=== PATIENT | female | born 1980 | race Caucasian/White ===

== ENCOUNTER 2017-02-16 20:21 | Emergency (ER) | payer BC, OTHER ==
[~2017-02-16] VITALS: Ht 167.6 cm; Wt 103.9 kg
[~2017-02-16 20:21] MED LIST: ACET-2222 PO; ACHD5005 PO; CALC500T7 PO; DCS100C PO; FRS325T PO; IBP600T1 PO; OMEP20TA2 PO; OX05NA15; OXYC-12 PO; PREN1TAB39 PO
--- OUTSIDE RECORDS SUMMARY | 2017-02-16 20:26 | XMS REPORT ---
Author SALINAS Ibarra Organization [employer] Address Unknown Phone Unavailable Care Team Providers Care Medical Device Assembler Name Role Phone SALINAS BANKS CP Unavailable Allergies No Known Allergies Problems Problem Type Condition Code Onset Dates Condition Status Problem Allergic rhinitis, cause unspecified 477.9 Active Problem Undiagnosed cardiac murmurs 785.2 Active Problem Physical exam Z00.00 Active Problem Acute sinusitis, unspecified 461.9 Active Assessment Encounter for PPD test Z11.1 Active Medications No Known Medications Procedures Procedure Coding System Code Date TB INTRADERMAL TEST CPT-4 65197 Feb 03, 2015 Results No Known Results Summary Purpose [employer] Submission
--- OUTSIDE RECORDS SUMMARY | 2017-02-16 20:26 | XMS REPORT ---
Author MADHAVI Casarez [facility] [employer] Address Unknown Phone Unavailable Care Team Providers Care Head Waiter Name Role Phone MADHAVI ORO CP Unavailable Allergies, Adverse Reactions, Alerts Substance Reaction Event Type N.K.D.A. Info Not Available Non Drug Allergy Problems Problem Type Condition Code Onset Dates Condition Status Problem Allergic rhinitis, cause unspecified 477.9 Active Problem Undiagnosed cardiac murmurs 785.2 Active Problem Physical exam Z00.00 Active Problem Acute sinusitis, unspecified 461.9 Active Assessment Physical exam Z00.00 Active Medications Medication Code System Code Instructions Start Date End Date Status Dosage Sprintec [facility] [address]-85 0.25-35 MG-MCG Orally Once a day 1 tablet Procedures Procedure Coding System Code Date Preventive Care Est Pt. Age 18-39 CPT-4 95314 Jan 27, 2015 TB INTRADERMAL TEST CPT-4 51094 Jan 27, 2015 Vital Signs Date/Time: Jan 27, 2015 Temperature 98.1 F Weight 219.5 lbs Height 66 in BMI 35.42 Index Blood Pressure Diastolic 60 mmHg Blood Pressure Systolic 112 mmHg Cardiac Monitoring Heart Rate 74 bpm Results Name Result Date Reference Range Unit Abnormality Flag TB INTRADERMAL Summary Purpose [employer]ClinicalWorks Submission
--- OUTSIDE RECORDS SUMMARY | 2017-02-16 20:26 | XMS REPORT ---
Author Author OPAL AGUIAR Organization [employer] Address Unknown Phone Unavailable Care Team Providers Care Library Media Specialist Name Role Phone OPAL AGUIAR Unavailable Allergies No Known Allergies Problems Problem Type Condition ICD-9 Code Onset Dates Condition Status Problem Undiagnosed cardiac murmurs 785.2 Active Problem Acute sinusitis, unspecified 461.9 Active Problem Allergic rhinitis, cause unspecified 477.9 Active Medications Medication Code System Code Instructions Start Date End Date Status Dosage NuvaRing [facility] [address]-62 0.12-0.015 mg/24 hr June 11, 2014 insert 1 vaginal ring by vaginal route once a month leave in place for 3 weeks, remove for 1 week Augmentin [facility] [address]-43 875-125 mg June 05, 2014 1 tablet by Oral route 2 times per day for 10 day(s) Flonase [facility] [address]-51 50 mcg/actuation July 30, 2013 1-2 sprays by Nasal route 2 times per day in each nostril Vital Signs Date/Time: Dec 04, 2014 Blood Pressure Diastolic 66 mmHg Blood Pressure Systolic 118 mmHg Height 66 in Results No Known Results Summary Purpose eClinicalWorks Submission
--- OUTSIDE RECORDS SUMMARY | 2017-02-16 20:27 | XMS REPORT | Continuity of Care Document ---
Author Author [facility] Organization [facility] Address Unknown Phone Unavailable Allergies Active Description Code Type Severity Reaction Onset Reported/Identified Relationship to Patient Clinical Status Yes No Known Drug Allergies [id number] Drug Allergy Unknown N/ A 05/01/2010 Medications Problems Date Dx Coded Attending Type Code Diagnosis Diagnosed By 05/06/2010 Ot 645.11 05/06/2010 Ot 661.21 05/06/2010 Ot 663.31 05/06/2010 Ot V06.1 05/06/2010 Ot V27.0 07/30/2013 JAIRO WELLS APRN 477.9 RHINITIS 07/30/2013 ELLIOT SANTOS DO 477.9 RHINITIS 07/30/2013 ELLIOT SANTOS DO 477.9 RHINITIS 03/09/2014 Ot 789.00 03/09/2014 Ot 789.00 03/26/2014 BENITA HALL DO Ot 285.1 AC POSTHEMORRHAG ANEMIA 03/26/2014 BENITA HALL DO Ot 287.5 THROMBOCYTOPENIA NOS 03/26/2014 BENITA HALL DO Ot 478.19 OTHER DISEASE OF NASAL CAVITY AND SINUSE 03/26/2014 BENITA HALL DO Ot 648.22 ANEMIA-DELIVERED W P/P 03/26/2014 BENITA HALL DO Ot 648.92 OTH CURR COND-DEL W P/P 03/26/2014 BENITA HALL DO Ot 649.31 COAGULATION DEFECTS COMP PREG/CHILDBIRTH 03/26/2014 BENITA HALL DO Ot 654.21 PREV DELIVRY W/ OR W/O MENT ANT 03/26/2014 BENITA HALL DO Ot 656.61 EXCESS GRTH-DELIV 03/26/2014 BENITA HALL DO Ot V03.82 PROPHYLACTIC VACC AGAINST STREPTOCOCCUS 03/26/2014 BENITA HALL DO Ot V06.1 [id number], COMBINED [ 03/26/2014 BENITA HALL DO Ot V27.0 DELIVER-SINGLE LIVEBORN 03/27/2014 BENITA HALL DO Ot 654.23 03/27/2014 BENITA HALL DO Ot V72.84 06/05/2014 ELLIOT SANTOS DO 461.9 ACUTE SINUSITIS UNSPECIFIED 06/05/2014 ELLIOT SANTOS DO K 785.2 UNDIAGNOSED CARDIAC MURMURS 06/05/2014 TOM RICKS ELLIOT K 461.9 ACUTE SINUSITIS UNSPECIFIED 06/05/2014 ELLIOT ASNTOS DO K 785.2 UNDIAGNOSED CARDIAC MURMURS 03/30/2015 BENITA HALL DO Ot 654.23 03/30/2015 BENITA HALL DO Ot V72.84 12/27/2015 BENITA HALL DO Ot 654.23 PREV DELIVERY, ANTEPARTUM COND 12/27/2015 BENITA HALL DO Ot V72.84 EXAM PRE-OPERATIVE NOS Procedures Code Description Performed By Performed On 72.79 03/24/2014 74.1 03/24/2014 75846 THERAPUTIC INJ SQ/IM 06/11/2014 J2930 SOLUMEDROL INJ Results Encounters ACCT No. Visit Date/Time Discharge Status Pt. Type Provider Facility Loc./Unit Complaint [id number] 03/24/2014 07:37:00 2014 14:30:00 DIS Inpatient BENITA HALL DO [facility] LDRP PREVIOUS SECTION [id number] 03/16/2014 08:57:00 2013 23:59:59 CLS Outpatient BENITA HALL DO [facility] PREOP PREVIOUS SECTION [id number] 02/16/2017 20:22:00 ACT Emergency HANNAH VILLARREAL MD [facility] ER R EYELID CELLULITIS [id number] 03/09/2014 13:51:00 Document Registration [id number] 01/21/2011 11:14:00 Document Registration [id number] 01/20/2011 13:01:00 Document Registration [id number] 05/01/2010 19:58:00 Document Registration [id number] 06/11/2014 09:14:00 06/11/2014 23: 59:59 CLS Outpatient ELLIOT SANTOS DO [id number] 06/05/2014 15:08:00 06/05/2014 23: 59:59 CLS Outpatient ELLIOT SANTOS DO [id number] 07/30/2013 15:59:00 07/30/2013 23: 59:59 CLS Outpatient JAIRO WELLS APRN
[2017-02-16] MEDS ORDERED: AMOX1TAB12 PO (20:30)
--- NOTE | 2017-02-16 20:42 | ED EENT ---
History of Present Illness General Chief Complaint: Eye Problems Stated Complaint: R EYELID CELLULITIS Nursing Triage Note: C/o redness and bumps starting around R eye starting sunday Source: patient Exam Limitations: no limitations History of Present Illness Time seen by provider: 20:37 Initial Comments To ER with swelling and redness of the right eyelid. His began on Sunday of this week, 02/12. This began as 2 small bumps on the right upper eyelid. She did not know any cause but the pain anne her attention to them. She states they did not look like pimples. She is uncertain what may have caused this though she does state that she plucks her eyebrows. Yesterday she was started on cephalexin. Today, she reported worsening so she went to urgent care and received an intramuscular injection of Rocephin a few hours ago. She still denies improvement. She is otherwise healthy. Timing/Duration: abrupt Allergies and Home Medications Allergies Coded Allergies: No Known Drug Allergies (Unverified , 05/01/10) Home Medications Amoxicillin/Potassium Clav 1 Each Tablet, 1 EACH PO, (Reported) Sulfamethoxazole/Trimethoprim 1 Each Tablet, 1 EACH PO BID, #14 Prescribed by: RAMU ARRIAZA on 02/16/172119 Review of Systems Constitutional: see HPI, No chills, No fever Eyes: See HPI Ears: No Symptoms Reported Nose: no symptoms reported Mouth: no symptoms reported Throat: no symptoms reported Respiratory: no symptoms reported Cardiovascular: no symptoms reported Musculoskeletal: no symptoms reported Skin: no symptoms reported Neurological: No Symptoms Reported Hematologic/Lymphatic: No Symptoms Reported Past Suawepl-Hqwfoi-Vavjqg Hx Patient Social History Alcohol Use: Denies Use Recreational Drug Use: No Smoking Status: Never a Smoker Recent Foreign Travel: No Contact w/Someone Who Travel: No Recent Infectious Disease Expo: No Recent Hopitalizations: Yes Physical Abuse: No Sexual Abuse: No Immunizations Up To Date Date of Influenza Vaccine: Feb 16, 2014 Surgeries History of Surgeries: Yes (ANKLE) Respiratory History of Respiratory Disorde: No Cardiovascular History of Cardiac Disorders: Yes (HEART MURMUR-MVP) Neurological History of Neurological Disord: No Reproductive System Hx Reproductive Disorders: No Genitourinary History of Genitourinary Disor: No Gastrointestinal History of Gastrointestinal Di: No Musculoskeletal History of Musculoskeletal Dis: No Endocrine History of Endocrine Disorders: No HEENT History of HEENT Disorders: No Cancer History of Cancer: No Psychosocial History of Psychiatric Problem: No Suicide Risk Score: 0 Integumentary History of Skin or Integumenta: No Blood Transfusions History of Blood Disorders: No Family Medical History Family Medial History: No Family History of: AIDS Alcoholism Alzheimer's disease Arthritis Asthma Cancer of mouth Cardiovascular disease Cataracts Completed stroke Dementia Diabetes mellitus Drug abuse Glaucoma Hypertension Kidney disease Myocardial infarction Parkinson's disease Prostate cancer Respiratory disorder Seizure disorder Thyroid disease Tuberculosis Physical Exam Vital Signs Vital Sign - Last 12Hours 02/16/17 20:24 Temp 99.6 Pulse 82 Resp 18 Pulse Ox 97 O2 Delivery Room Air General Appearance: WD/WN, no apparent distress Eyes: right eye other (erythema and swelling of the right upper eyelid. Swelling of the lower eyelid but without erythema. There are 2 puncture done the inferior border of the eyebrow on the right. There is no pustule and there are no vesicles. Extraocular muscles are intact there is no conjunctival injection or erythema.), left eye normal inspection, bilateral eye PERRL, bilateral eye EOMI Neck: non-tender, full range of motion Respiratory: no respiratory distress, no accessory muscle use Gastrointestinal: non tender, soft Neurologic/Psychiatric: alert, normal mood/affect, oriented x 3 Skin: normal color, warm/dry Progress/Results/Core Measures Results/Orders Lab Results Laboratory Tests Test 02/16/17 20:40 Range/Units White Blood Count 13.4 H 4.3-11.0 10^3/uL Red Blood Count 4.56 4.35-5.85 10^6/uL Hemoglobin 14.5 11.5-16.0 G/DL Hematocrit 41 35-52 % Mean Corpuscular Volume 90 80-99 FL Mean Corpuscular Hemoglobin 32 25-34 PG Mean Corpuscular Hemoglobin Concent 36 32-36 G/DL Red Cell Distribution Width 12.9 10.0-14.5 % Platelet Count 209 130-400 10^3/uL Mean Platelet Volume 11.4 H 7.4-10.4 FL Neutrophils (%) (Auto) 79 H 42-75 % Lymphocytes (%) (Auto) 15 12-44 % Monocytes (%) (Auto) 4 0-12 % Eosinophils (%) (Auto) 1 0-10 % Basophils (%) (Auto) 0 0-10 % Neutrophils # (Auto) 10.6 H 1.8-7.8 X 10^3 Lymphocytes # (Auto) 2.0 1.0-4.0 X 10^3 Monocytes # (Auto) 0.5 0.0-1.0 X 10^3 Eosinophils # (Auto) 0.2 0.0-0.3 10^3/uL Basophils # (Auto) 0.0 0.0-0.1 10^3/uL Sodium Level 138 135-145 MMOL/L Potassium Level 3.6 3.6-5.0 MMOL/L Chloride Level 104 98-107 MMOL/L Carbon Dioxide Level 21 21-32 MMOL/L Anion Gap 13 5-14 MMOL/L Blood Urea Nitrogen 17 7-18 MG/DL Creatinine 0.87 0.60-1.30 MG/DL Estimat Glomerular Filtration Rate > 60 BUN/Creatinine Ratio 20 Glucose Level 148 H 70-105 MG/DL Calcium Level 9.2 8.5-10.1 MG/DL C-Reactive Protein High Sensitivity 2.97 H 0.00-0.50 MG/DL My Orders Orders - RAMU ARRIAZA APRN Cbc With Automated Diff (02/16/17 20:36) Hs C Reactive Protein (02/16/17 20:36) Basic Metabolic Panel (02/16/17 20:36) Ct Head Wo (02/16/17 20:36) Saline Lock/Iv-Start (02/16/17 20:36) Clindamycin Injection (Cleocin Injection (02/16/17 21:00) Clindamycin Injection (Cleocin Injection (02/16/17 21:12) Ns (Ivpb) (Sodium Chloride 0.9% Ivpb Bag (02/16/17 21:12) Medications Given in ED Current Medications Medications Dose Ordered Sig/Prerna Route Start Time Stop Time Status Last Admin Dose Admin Clindamycin Phosphate 900 mg ONCE ONCE IV 02/16/17 21:00 02/16/17 21:01 DC 02/16/17 21:25 900 MG Sodium Chloride 50 ml @ STK-MED ONCE .ROUTE 02/16/17 21:12 02/16/17 21:14 DC 02/16/17 21:24 100 MLS/HR Vital Signs/I&O Vital Sign - Last 12Hours 02/16/17 20:24 Temp 99.6 Pulse 82 Resp 18 B/P (MAP) Pulse Ox 97 O2 Delivery Room Air Departure Communication (Admissions) Progress Notes There are no open or draining wounds to culture. These punctum are dry. There is no fluctuance. Given that she is young and otherwise healthy and there are only 2 punctum without vesicles herpes zoster ophthalmicus does cross my mind but I feel this is unlikely. Impression Impression: Primary Impression: Periorbital cellulitis of right eye Disposition: HOME, SELF-CARE Condition: Stable Departure-Patient Inst. Decision time for Depature: 21:19 Referrals: NO,LOCAL PHYSICIAN (PCP/Family) Primary Care Physician Patient Instructions: Orbital Cellulitis Add. Discharge Instructions: 1. Cool compresses to the eye 2. Return to ER for any concerns 3. Continue with the antibiotics (amoxicillin). I will add an additional antibiotic called Bactrim which covers for the bacteria MRSA in the event that the cellulitis is caused from this type of bacteria. All discharge instructions reviewed with patient and/or family. Voiced understanding. Scripts Sulfamethoxazole/Trimethoprim (Bactrim Ds Tablet) 1 Each Tablet 1 EACH PO BID, #14 TAB Prov: RAMU ARRIAZA APRN 02/16/17 RAMU ARRIAZA APRN Feb 16, 2017 20:41
[2017-02-16 20:51] LABS: BASOPHILS % (AUTO) 0 % (0-10); EOSINOPHILS # (AUTO) 0.2 10^3/uL (0.0-0.3); EOSINOPHILS % (AUTO) 1 % (0-10); LYMPHOCYTES % (AUTO) 15 % (12-44); MEAN CORPUSCULAR HEMOGLOBIN 32 PG (25-34); MEAN CORPUSCULAR HGB CONC 36 G/DL (32-36); MEAN CORPUSCULAR VOLUME 90 FL (80-99); MEAN PLATELET VOLUME 11.4 FL (7.4-10.4); MONOCYTES # (AUTO) 0.5 X 10^3 (0.0-1.0); MONOCYTES % (AUTO) 4 % (0-12); NEUTROPHILS # (AUTO) 10.6 X 10^3 (1.8-7.8); NEUTROPHILS % (AUTO) 79 % (42-75); PLATELET COUNT 209 10^3/uL (130-400); RED BLOOD COUNT 4.56 10^6/uL (4.35-5.85); RED CELL DISTRIBUTION WIDTH 12.9 % (10.0-14.5); WHITE BLOOD COUNT 13.4 10^3/uL (4.3-11.0)
--- NOTE | 2017-02-16 21:02 | Diagnostic Imaging Report ---
PROCEDURE: CT head without contrast. TECHNIQUE: Multiple contiguous axial images were obtained through the brain without the use of intravenous contrast. INDICATION: Right eye swelling. FINDINGS: The ventricles and sulci are within normal limits. There is no hydrocephalus. There is no midline shift. There is no intracranial mass, hemorrhage or extra-axial fluid collection. The calvarium is intact. Sinuses and mastoid air cells are clear. There is soft tissue swelling about the right orbit. IMPRESSION: 1. No acute intracranial abnormality. 2. Soft tissues swelling about the right orbit. Dictated by: Dictated on workstation # [id number]
[2017-02-16 21:11] LABS: ANION GAP 13 MMOL/L (5-14); BLOOD UREA NITROGEN 17 MG/DL (7-18); BUN/CREATININE RATIO 20; CALCIUM 9.2 MG/DL (8.5-10.1); CARBON DIOXIDE 21 MMOL/L (21-32); CHLORIDE 104 MMOL/L (98-107); CREATININE SERUM 0.87 MG/DL (0.60-1.30); GFR ESTIMATED > 60; GLUCOSE 148 MG/DL (70-105); POTASSIUM 3.6 MMOL/L (3.6-5.0); SODIUM 138 MMOL/L (135-145); hs C REACTIVE PROTEIN 2.97 MG/DL (0.00-0.50)
[2017-02-16] MEDS ORDERED: NS (IVPB) 50 ML ONE (21:12)
[2017-02-16] MEDS ORDERED: CLINDAMYCIN 900 MG/6ML (CLEOCIN) VIAL ONE (21:12)
[2017-02-16] MEDS ORDERED: SULF1TAB35 PO (21:20)
[2017-02-16] MEDS: CLINDAMYCIN 900 MG/6ML (CLEOCIN) VIAL IV ONE ×2 (21:22→21:25)
[2017-02-16 21:47] VITALS: BP 155/96
== END 2017-02-16 21:46 | disposition home or self-care (01) ==
LOC: EDUNIT# 20:21 → ER 20:22
DX: L03.213 Periorbital cellulitis (principal)
CPT/HCPCS: 36415; 70450; 80048; 85025; 86141

== ENCOUNTER → 2017-02-17 | Emergency (ER) | payer OTHER ==
[~2017-02-17] VITALS: Ht 165.1 cm; Wt 90.7 kg
[~2017-02-17] MED LIST changes: +AMOX1TAB12 PO; +SULF1TAB35 PO
--- NOTE | 2017-02-17 13:14 | ED EENT ---
History of Present Illness General Stated Complaint: WOUND CHECK Source: patient Exam Limitations: no limitations History of Present Illness Time seen by provider: 13:12 Initial Comments Presents for wound check. There is less pain. On exam there is less erythema and swelling though these are both still present to some degree. The 2 small punctum noted yesterday now appear to be pustules. I have unroofed these with the blunt needle. I was able to collect a surprising amount of purulent material out of each one of these. Culture of this was collected and sent to lab. She is on Augmentin and Bactrim. Timing/Duration: abrupt Location: eye (R) Allergies and Home Medications Allergies Coded Allergies: No Known Drug Allergies (Unverified , 05/01/10) Home Medications Amoxicillin/Potassium Clav 1 Each Tablet, 1 EACH PO, (Reported) Sulfamethoxazole/Trimethoprim 1 Each Tablet, 1 EACH PO BID, #14 Prescribed by: RAMU ARRIAZA on 02/16/172119 Review of Systems Constitutional: see HPI, No chills, No fever Eyes: No Symptoms Reported Ears: No Symptoms Reported Nose: no symptoms reported Mouth: no symptoms reported Throat: no symptoms reported Respiratory: no symptoms reported Cardiovascular: no symptoms reported Past Avozvtb-Edflua-Hpsffo Hx Patient Social History Recent Foreign Travel: No Contact w/Someone Who Travel: No Recent Hopitalizations: Yes Immunizations Up To Date Date of Influenza Vaccine: Feb 16, 2014 Surgeries History of Surgeries: Yes (ANKLE) Respiratory History of Respiratory Disorde: No Cardiovascular History of Cardiac Disorders: Yes (HEART MURMUR-MVP) Neurological History of Neurological Disord: No Reproductive System Hx Reproductive Disorders: No Genitourinary History of Genitourinary Disor: No Gastrointestinal History of Gastrointestinal Di: No Musculoskeletal History of Musculoskeletal Dis: No Endocrine History of Endocrine Disorders: No HEENT History of HEENT Disorders: No Cancer History of Cancer: No Psychosocial History of Psychiatric Problem: No Integumentary History of Skin or Integumenta: No Blood Transfusions History of Blood Disorders: No Family Medical History Family Medial History: No Family History of: AIDS Alcoholism Alzheimer's disease Arthritis Asthma Cancer of mouth Cardiovascular disease Cataracts Completed stroke Dementia Diabetes mellitus Drug abuse Glaucoma Hypertension Kidney disease Myocardial infarction Parkinson's disease Prostate cancer Respiratory disorder Seizure disorder Thyroid disease Tuberculosis Physical Exam General Appearance: WD/WN, no apparent distress Eyes: right eye other (see history of present illness), bilateral eye PERRL, bilateral eye EOMI Ears: bilateral ear auricle normal, bilateral ear canal normal, bilateral ear TM normal Neck: non-tender, full range of motion Respiratory: no respiratory distress, no accessory muscle use Neurologic/Psychiatric: alert, normal mood/affect, oriented x 3 Skin: normal color, warm/dry Progress/Results/Core Measures Results/Orders My Orders Orders - RAMU ARRIAZA APRN Wound Culture (02/17/17 13:11) Departure Impression Impression: Primary Impression: Periorbital cellulitis of right eye Disposition: 01 HOME, SELF-CARE Condition: Stable Departure-Patient Inst. Decision time for Depature: 13:14 Referrals: NO,LOCAL PHYSICIAN (PCP/Family) Primary Care Physician Patient Instructions: PERIORBITAL CELLULITIS Add. Discharge Instructions: 1. Continue the current antibiotic regimen 2. Return to ER for any concerns 3. Tylenol and Motrin for pain RAUM ARRIAZA APRN Feb 17, 2017 13:14
== END ==
LOC: EDUNIT# 13:02 → ER 13:04
DX: H05.011 Cellulitis of right orbit (principal)
CPT/HCPCS: 87070; 87077; 87186; 87205

== ENCOUNTER 2018-09-17 10:05 | Day surgery (SDC) | payer OTHER ==
[2018-09-17] VITALS (8 sets, daily range): BP systolic 109–123; BP diastolic 63–78
[~2018-09-17] VITALS: Ht 165.1 cm; Wt 91.0 kg
[2018-09-17] MEDS: LACTATED RINGERS 1,000 ML IV SCH ×2 (10:30→13:21)
[2018-09-17] MEDS ORDERED: MIDAZOLAM 2 MG/2 ML (VERSED) VIAL IV ONE (10:30)
[2018-09-17] MEDS ORDERED: ceFAZolin INJECTION 1,000 MG in WATER (STERILE) FOR INJECTION 10 ML IV ONE (10:30)
--- NOTE | 2018-09-17 10:53 | Progress Note-Pre Operative ---
Pre-Operative Progress Note H&P Reviewed The H&P was reviewed, patient examined and no changes noted. Date Seen by Provider: Sep 17, 2018 Time Seen by Provider: 10:50 Date H&P Reviewed: Sep 17, 2018 Time H&P Reviewed: 10:50 Pre-Operative Diagnosis: missed , 8 weeks BENITA HALL DO Sep 17, 2018 10:52
--- OUTSIDE RECORDS SUMMARY | 2018-09-17 11:24 | XMS REPORT ---
Author Author Migration, Doctor Organization [facility] Address Unknown Phone Unavailable Care Team Providers Care Javascript Programmer Name Role Phone Migration, Doctor Unavailable Unavailable PROBLEMS Type Condition ICD9-CM Code KIN18-FZ Code Onset Dates Condition Status SNOMED Code Problem Allergic rhinitis, cause unspecified 477.9 Active 82094979 Problem Physical exam Z00.00 Active 609053659 Problem Undiagnosed cardiac murmurs 785.2 Active 582757304 Problem Acute sinusitis, unspecified 461.9 Active 83631466 ALLERGIES No Information ENCOUNTERS Encounter Location Date Diagnosis [address] [id number] Apr, Sore throat and laryngitis J06.[address] [id number] Jan, Encounter for PPD test Z11.1 [facility] [id number] [place] [id number] Jan, Physical exam Z00.[address] [id number] [place] [id number] Nov, [facility] [id number] [place] [phone] Jun, [facility] [id number] [place] [phone] Jun, [address] [id number] [place] [id number] May, [facility] [address] [phone] May, [address] [place] [id number] [place] [address] [id number] May, [facility] [address] [phone] May, [facility] [address] [facility] [id number] [id number] July, [facility] [address] [facility] [id number] [place] [address] July, IMMUNIZATIONS No Known Immunizations SOCIAL HISTORY Never Assessed REASON FOR VISIT EMR[place] [place]AN OF CARE VITAL SIGNS MEDICATIONS Medication Instructions Dosage Frequency Start Date End Date Duration Status Augmentin 875-125 mg 1 tablet by Oral route 2 times per day for 10 day(s) May, Active NuvaRing 0.12-0.015 mg/24 hr insert 1 vaginal ring by vaginal route once a month leave in place for 3 weeks, remove for 1 week May, Active Flonase 50 mcg/actuation 1-2 sprays by Nasal route 2 times per day in each nostril July, Active RESULTS No Results PROCEDURES No Known procedures INSTRUCTIONS MEDICATIONS ADMINISTERED No Known Medications MEDICAL (GENERAL) HISTORY Type Description Date Surgical History section x2 Hospitalization History childbirth
--- OUTSIDE RECORDS SUMMARY | 2018-09-17 11:24 | XMS REPORT | Continuity of Care Document ---
Author Organization Unknown Address Unknown Allergies Active Description Code Type Severity Reaction Onset Reported/Identified Relationship to Patient Clinical Status Yes No Known Drug Allergies [id number] Drug Allergy Unknown N/A 05/01/2010 Medications There is no data. Problems Date Dx Coded Attending Type Code [...] STREPTOCOCCUS 03/26/2014 BENITA HALL DO Ot V06.1 CBCXOZQIVA-[id number]-LYPRYMNWM, COMBINED [ 03/26/2014 BENITA HALL DO, Ot V27.0 DELIVER-SINGLE LIVEBORN 03/27/2014 RAFAEL RICKS, BENITA C Ot 654.23 03/27/2014 RAFAEL RICKS, BENITA C Ot V72.84 06/05/2014 ELLIOT SANTOS DO K 461.9 ACUTE SINUSITIS UNSPECIFIED 06/05/2014 ELLIOT SANTOS DO K 785.2 UNDIAGNOSED CARDIAC MURMURS 06/05/2014 ELLIOT SANTOS DO K 461.9 ACUTE SINUSITIS UNSPECIFIED 06/05/2014 ELLIOT SANTOS DO K 785.2 UNDIAGNOSED CARDIAC MURMURS 03/30/2015 RAFAEL DO, BENITA C Ot 654.23 03/30/2015 HALL DO, BENITA C Ot V72.84 12/27/2015 HALL DO, BENITA C Ot 654.23 PREV DELIVERY, ANTEPARTUM COND 12/27/2015 RAFAEL RICKS, BENITA C Ot V72.84 EXAM PRE-OPERATIVE NOS 02/16/2017 RAMU ARRIAZA APRN Ot H57.8 OTHER SPECIFIED DISORDERS OF EYE AND ADN 02/16/2017 RMAU ARRIAZA APRN Ot L03.213 PERIORBITAL CELLULITIS 02/16/2017 RAFAEL DO, BENITA C Ot 654.23 PREV DELIVERY, ANTEPARTUM COND 02/16/2017 HALL , BENITA C Ot V72.84 EXAM PRE-OPERATIVE NOS 02/17/2017 RAMU ARRIAZA APRN Ot H05.011 CELLULITIS OF RIGHT ORBIT 02/20/2017 RAMU ARRIAZA APRN Ot H05.011 CELLULITIS OF RIGHT ORBIT 03/21/2017 RAMU ARRIAZA APRN Ot H05.011 CELLULITIS OF RIGHT ORBIT 03/25/2017 RAMU ARRIAZA APRN Ot H05.011 CELLULITIS OF RIGHT ORBIT Procedures Code Description Performed By Performed On 72.79 VACUUM EXTRACT DEL NEC 03/24/2014 74.1 LOW CERVICAL 03/24/2014 65711 THERAPUTIC INJ SQ/IM 06/11/2014 J2930 SOLUMEDROL INJ 06/11/2014 Results Test Result Range Complete blood count (CBC) with automated white blood cell (WBC) differential - 02/16/17 20:40 Blood leukocytes automated count (number/volume) 13.4 10*3/uL 4.3-11.0 Blood erythrocytes automated count (number/volume) 4.56 10*6/uL 4.35-5.85 Venous blood hemoglobin measurement (mass/volume) 14.5 g/dL 11.5-16.0 Blood hematocrit (volume fraction) 41 % 35-52 Automated erythrocyte mean corpuscular volume 90 [foz_us] 80-99 Automated erythrocyte mean corpuscular hemoglobin (mass per erythrocyte) 32 pg 25-34 Automated erythrocyte mean corpuscular hemoglobin concentration measurement (mass/volume) 36 g/dL 32-36 Automated erythrocyte distribution width ratio 12.9 % 10.0- 14.5 Automated blood platelet count (count/volume) 209 10*3/uL 130-400 Automated blood platelet mean volume measurement 11.4 [foz_us] 7.4-10.4 Automated blood neutrophils/100 leukocytes 79 % 42-75 Automated blood lymphocytes/100 leukocytes 15 % 12-44 Blood monocytes/100 leukocytes 4 % 0-12 Automated blood eosinophils/100 leukocytes 1 % 0-10 Automated blood basophils/100 leukocytes 0 % 0-10 Blood neutrophils automated count (number/volume) 10.6 10*3 1.8-7.8 Blood lymphocytes automated count (number/volume) 2.0 10*3 1.0-4.0 Blood monocytes automated count (number/volume) 0.5 10*3 0.0- 1.0 Automated eosinophil count 0.2 10*3/uL 0.0-0.3 Automated blood basophil count (count/volume) 0.0 10*3/uL 0.0-0.1 Whole blood basic metabolic panel - 02/16/17 20:40 Serum or plasma sodium measurement (moles/volume) 138 mmol/L 135-145 Serum or plasma potassium measurement (moles/volume) 3.6 mmol/L 3.6-5.0 Serum or plasma chloride measurement (moles/volume) 104 mmol/L 98-107 Carbon dioxide 21 mmol/L 21-32 Serum or plasma anion gap determination (moles/volume) 13 mmol/L 5-14 Serum or plasma urea nitrogen measurement (mass/volume) 17 mg/dL 7-18 Serum or plasma creatinine measurement (mass/volume) 0.87 mg/dL 0.60-1.30 Serum or plasma urea nitrogen/creatinine mass ratio 20 NRG Serum or plasma creatinine measurement with calculation of estimated glomerular filtration rate > NRG Serum or plasma glucose measurement (mass/volume) 148 mg/dL 70-105 Serum or plasma calcium measurement (mass/volume) 9.2 mg/dL 8.5-10.1 Serum or plasma C reactive protein measurement (mass/volume) - 02/16/17 20:40 Serum or plasma C reactive protein measurement (mass/volume) 2.97 mg/dL 0.00-0.50 Gram stain microscopy - 02/17/17 13:16 GRAM STAIN RESULT FEW GRAM POSITIVE COCCI RESEMBLING STAPH NRG Bacteria identification in wound by culture - 02/17/17 13:16 Bacteria identification in wound by culture [id number] NRG FREE TEXT EXTERNAL SENSITIVITY REPORTED AT 02-19-17 NRG QUANTITY OF GROWTH Moderate Growth NRG Bacterial susceptibility panel - 02/17/17 13:16 Oxacillin susceptibility test by minimum inhibitory concentration 0.5 NRG Gentamicin susceptibility test by minimum inhibitory concentration <= NRG Clindamycin susceptibility test by minimum inhibitory concentration <= NRG Erythromycin susceptibility test by minimum inhibitory concentration >= NRG Trimethoprim/sulfamethoxazole susceptibility test by minimum inhibitoryconcentration S NRG Vancomycin susceptibility test by minimum inhibitory concentration S NRG Levofloxacin susceptibility test by minimum inhibitory concentration 4 NRG Rifampin susceptibility test by minimum inhibitory concentration <= NRG Tetracycline susceptibility test by minimum inhibitory concentration <= NRG Ciprofloxacin susceptibility test by minimum inhibitory concentration R NRG Encounters ACCT No. Visit Date/Time Discharge Status Pt. Type Provider Facility Loc./Unit Complaint [id number] 06/11/2014 09:14:00 06/11/2014 23:59:59 CLS Outpatient ELLIOT SANTOS DO [id number] 06/05/2014 15:08:00 06/05/2014 23:59:59 CLS Outpatient ELLIOT SANTOS DO [id number] 07/30/2013 15:59:00 07/30/2013 23:59:59 CLS Outpatient JAIRO WELLS APRN [id number] 02/17/2017 13:04:00 02/17/2017 13:24:00 DIS Emergency RAMU ARRIAZA APRN [facility] ER WOUND CHECK [id number] 02/16/2017 20:22:00 02/16/2017 21:46:00 DIS Emergency RAMU ARRIAZA APRN [facility] ER R EYELID CELLULITIS [id number] 03/24/2014 07:37:00 03/26/2014 14:30:00 DIS Inpatient BENITA HALL DO [facility] LDRP PREVIOUS SECTION [id number] 03/16/2014 08:57:00 03/16/2014 23:59:59 CLS Outpatient BENITA HALL DO [facility] PREOP PREVIOUS SECTION [id number] 03/09/2014 13:51:00 Document Registration [id number] 01/21/2011 11:14:00 Document Registration [id number] 01/20/2011 13:01:00 Document Registration [id number] 05/01/2010 19:58:00 Document Registration
--- OUTSIDE RECORDS SUMMARY | 2018-09-17 11:24 | XMS REPORT ---
Author Author Migration, Doctor Organization [facility] Address Unknown Phone Unavailable Care Team Providers Care Machine Lead Burner Name Role Phone Migration, Doctor Unavailable Unavailable PROBLEMS Type Condition ICD9-CM Code [id number] Code Onset Dates Condition Status SNOMED Code Problem Allergic rhinitis, cause unspecified 477.9 Active 57254342 Problem Physical exam Z00.00 Active 440163738 Problem Undiagnosed cardiac murmurs 785.2 Active 000423638 Problem Acute sinusitis, unspecified 461.9 Active 62896576 ALLERGIES No Information ENCOUNTERS Encounter Location Date Diagnosis [address] [id number] Apr, Sore throat and laryngitis J06.[address] [id number] Jan, Encounter for PPD test Z11.1 [facility] [id number] [place] [address] Jan, Physical exam Z00.00 [id number] [place] [id number] Nov, [facility] [id number] [place] [address] Jun, [facility] [id number] [place] [phone] Jun, [place] [place] [id number] [place] [id number] May, [facility] [address] [phone] May, [place] [id number] [place] [id number] May, [facility] [address] [address] May, [facility] [address] [facility] [id number] [place] [id number] July, [facility] [address] [facility] [id number] [address] July, IMMUNIZATIONS No Known Immunizations SOCIAL HISTORY Never Assessed REASON FOR [place] [place] VITAL SIGNS MEDICATIONS No Known Medications RESULTS No Results PROCEDURES No Known procedures INSTRUCTIONS MEDICATIONS ADMINISTERED No Known Medications MEDICAL (GENERAL) HISTORY Type Description Date Surgical History section x2 Hospitalization History childbirth
[2018-09-17] MEDS ORDERED: fentaNYL INJECTION 100 MCG/2 ML AMP ONE (12:30)
[2018-09-17] MEDS ORDERED: ONDANSETRON 4 MG/2 ML (SDV) Z0FRAN ONE (12:30)
[2018-09-17] MEDS ORDERED: LIDOCAINE PF 2% 5 ML (XYLOCAINE) VIAL ONE (12:30)
[2018-09-17] MEDS ORDERED: proPOfol 200 MG/20 ML (DIPRIVAN) VIAL IV ONE (12:30)
[2018-09-17] MEDS ORDERED: MIDAZOLAM 2 MG/2 ML (VERSED) VIAL ONE (12:31)
[2018-09-17] MEDS ORDERED: DEXAMETHASONE 10 MG/ML (DECADRON) 1 ML VIAL ONE (12:32)
[2018-09-17] MEDS ORDERED: KETOROLAC 30 MG/ML VIAL ONE (12:32)
[2018-09-17] MEDS ORDERED: SEVOFLURANE (ULTANE) 15 ML INHAL SOLN ONE ×3 (12:32→13:14)
[2018-09-17] MEDS ORDERED: PREN-142 PO (12:37)
[2018-09-17] MEDS ORDERED: KETOROLAC 30 MG/ML VIAL IVP ONE (13:15)
--- NOTE | 2018-09-17 13:17 | Operative Report ---
Operative Report Date of Procedure/Surgery Sep 17, 2018 Surgeon (s) BENITA HALL DO Adhesive Bandage Machine Operator (s): NA Post-Operative Diagnosis Missed at 8 weeks Procedure Performed suction dilation and curettage Description of Procedure Anesthesia Type: General Estimated blood loss (mL): 200 Specimen(s) collected/removed products of conception Findings of the Procedure minimal amounts of productus of conception Allergies and Home Medications Allergies Coded Allergies: No Known Drug Allergies (Unverified , 05/01/10) Home Medications Vit No.124/Iron/FA 1 Each Tablet, 1 EACH PO DAILY, (Reported) Patient Home Medication List Home Medication List Reviewed: Yes BENITA HALL DO Sep 17, 2018 13:17
[2018-09-17] MEDS ORDERED: OXC5T PO (13:19)
[2018-09-17] MEDS ORDERED: ACET-2267 PO (13:19)
[2018-09-17] MEDS ORDERED: IBUP-1773 PO (13:19)
--- NOTE | 2018-09-17 13:21 | Discharge Inst-Women's Service ---
Discharge Inst-Women's Serv Depart Medication/Instructions New, Converted or Re-Newed RX: RX on Chart Final Diagnosis missed /miscarriage 8 weeks gestation Consults/Follow Up Additional Follow Up: Yes (1-2 weeks) Activity Activity: Activity as Tolerated Driving Instructions: No Driving for 24 Hours NO SMOKING: NO SMOKING Nothing Inside Vagina: No Douching, No [place], No Tampons Diet Discharge Diet: No Restrictions Symptoms to Report to : Bleeding Excessive, Pain Increased, Fever Over 101 Degrees F, Vaginal Bleeding Increase, Cramps in Feet or Legs, Vaginal Discharge Foul For Any Problems or Questions: Contact Your Physician BENITA HALL DO Sep 17, 2018 13:21
[2018-09-17] MEDS ORDERED: ONDANSETRON 4 MG/2 ML (SDV) Z0FRAN IVP PRN (13:30)
[2018-09-17] MEDS ORDERED: HYDROmorphone 2 MG/ML VIAL (DILAUDID) IV ONE (13:30)
[2018-09-17] MEDS ORDERED: PROMETHAZINE INJ 25 MG/ML (PHENERGAN) AMP IVP ONE (13:30)
[2018-09-17] MEDS ORDERED: morphine INJ 10 MG/ML 1ML (SYR OR VIAL) IVP ONE (13:30)
[2018-09-17] MEDS ORDERED: MEPERIDINE (DEMEROL) INJ 50 MG/ML IVP ONE (13:30)
== END 2018-09-17 14:55 | disposition home or self-care (01) ==
LOC: SDC 10:05
PROVIDERS: ATTEND Obstetrics & Gynecology
DX: O02.1 Missed abortion (principal); I34.0 Nonrheumatic mitral (valve) insufficiency; E66.9 Obesity, unspecified; Z68.34 Body mass index [BMI] 34.0-34.9, adult
CPT/HCPCS: 87081; 88305; 94664

== ENCOUNTER → 2019-03-03 | Outpatient (CLI) | payer OTHER ==
[~2019-03-03] MED LIST changes: +ACET-2267 PO; +IBUP-1773 PO; +OXC5T PO; +PREN-142 PO
--- NOTE | 2019-03-03 15:12 | Diagnostic Imaging Report ---
INDICATION: Cough and shortness of breath. TIME OF EXAM: 2:44 p.m. COMPARISON: No prior studies are available for comparison. FINDINGS: The heart size is normal. The pulmonary vascularity is unremarkable. The lungs are clear. No infiltrate, effusion or pneumothorax is detected. IMPRESSION: No acute cardiopulmonary process is detected. Dictated by: Dictated on workstation # [id number]
== END ==
LOC: RAD 14:06
PROVIDERS: ATTEND Nurse Practitioner Family
DX: O99.511 Diseases of the respiratory system complicating pregnancy, first trimester (principal); J16.8 Pneumonia due to other specified infectious organisms; O99.89 Other specified diseases and conditions complicating pregnancy, childbirth and the puerperium; F43.20 Adjustment disorder, unspecified; Z3A.11 11 weeks gestation of pregnancy
CPT/HCPCS: 71047

== ENCOUNTER → 2019-05-19 | Outpatient (CLI) | payer BC, OTHER ==
--- NOTE | 2019-05-19 12:20 | Diagnostic Imaging Report ---
INDICATION: survey. TECHNIQUE: Multiple real-time grayscale images were obtained over the gravid uterus. COMPARISON: None. FINDINGS: There are no prior studies available for comparison. There is a single live fetus in cephalic presentation. heart motion was noted and a rate 144 bpm was recorded. There are no abnormalities identified. The growth parameters are fairly uniform. The placenta is posterior and there is no previa. The amniotic fluid volume is within normal limits. The cervix is identified and measures 4.4 cm in length. Biometrical measurements are as follows: Biparietal cm, age weeks days. Head circumference cm, age weeks days. Abdominal circumference cm, age weeks days. Femur length cm, age weeks days. Sonographic estimate age: weeks days. Sonographic estimated date of delivery: . Estimated Weight: gm (+/- gm). LMP percentile: %. heart rate: beats per minute. number: of . IMPRESSION: 1. There is a single live fetus of approximately 20 weeks 2 days gestation +/- 1.5 weeks. The EDC is October 04, 2019. 2. There are no abnormalities identified. 3. The growth parameters are fairly uniform. Dictated by: Dictated on workstation # [id number]
== END ==
LOC: RAD 10:08
PROVIDERS: ATTEND Obstetrics & Gynecology
DX: Z36.89 Encounter for other specified antenatal screening (principal); Z3A.20 20 weeks gestation of pregnancy
CPT/HCPCS: 76805

== ENCOUNTER → 2019-07-15 | Outpatient (CLI) | payer BC ==
--- NOTE | 2019-07-15 14:32 | Diagnostic Imaging Report ---
INDICATION: Gestational diabetes mellitus. TECHNIQUE: Multiple real-time grayscale images were obtained over the gravid uterus. The fetus was also observed by the cloth booker for purposes of a nonstress biophysical profile evaluation. COMPARISON: 05/19/2019. FINDINGS: A single viable intrauterine is currently in a cephalic presentation. Placenta is posterior and without evidence for previa. Amniotic fluid: 18.63 cm, upper limits of normal anatomical assessment was not performed. Biometrical measurements are as follows: Biparietal 7.49 cm, age 30 weeks 1 days. Head circumference 27.15 cm, age 29 weeks 5 days. Abdominal circumference 25.72 cm, age 30 weeks 0 days. Femur length 5.53 cm, age 29 weeks 2 days. Sonographic estimate age: 29 weeks 6 days. Sonographic estimated date of delivery: 09/24/2019. Estimated Weight: 1428 gm (+/- 208 gm). LMP percentile: 39%. heart rate: 129 beats per minute. number: 1 of 1. Biophysical Profile Scoring: breathin Body movement: 2 tone: 2 Amniotic fluid: 2 Total BPP Score: 8/8 IMPRESSION: 1. Single viable intrauterine with sonographic estimated age 29 weeks 6 days for estimated date of delivery of September 24, 2019. This is approximately 10 days advanced compared to previous ultrasound dating. Continued short-term follow-up imaging is recommended for reassessment. 2. Normal biophysical profile score. Dictated by: Dictated on workstation # [id number]
== END ==
LOC: RAD 13:11
PROVIDERS: ATTEND Obstetrics & Gynecology
DX: O24.410 Gestational diabetes mellitus in pregnancy, diet controlled (principal); Z3A.29 29 weeks gestation of pregnancy
CPT/HCPCS: 76805; 76819

== ENCOUNTER → 2019-08-15 | Outpatient (CLI) | payer BC, MEDICAID ==
--- NOTE | 2019-08-15 13:00 | Diagnostic Imaging Report ---
INDICATION: Gestational diabetes. TECHNIQUE: Multiple real-time grayscale images were obtained over the gravid uterus. COMPARISON: 07/15/2019. FINDINGS: There is a single live fetus in a cephalic presentation. heart rate was recorded at 134 BPM. Placenta is posterior. Amniotic fluid index is 16.1 cm. Biophysical profile was performed with a normal score of 8/8. Biometrical measurements are as follows: Biparietal 8.58 cm, age 34 weeks 5 days. Head circumference 30.76 cm, age 34 weeks 3 days. Abdominal circumference 30.17 cm, age 34 weeks 1 days. Femur length 6.29 cm, age 32 weeks 4 days. Sonographic estimate age: 34 weeks 0 days. Sonographic estimated date of delivery: 09/26/2019. Estimated Weight: 2267 gm (+/- 331 gm). LMP percentile: 36%. heart rate: 134 beats per minute. number: 1 of 1. IMPRESSION: Single live IUP of approximately 34 weeks gestational age, demonstrating normal interval growth. Biophysical profile is normal at 8/8. Dictated by: Dictated on workstation # [id number]
== END ==
LOC: RAD 11:32
PROVIDERS: ATTEND Obstetrics & Gynecology
DX: O24.410 Gestational diabetes mellitus in pregnancy, diet controlled (principal); O09.529 Supervision of elderly multigravida, unspecified trimester; Z3A.32 32 weeks gestation of pregnancy; Z98.891 History of uterine scar from previous surgery
CPT/HCPCS: 76805; 76819

== ENCOUNTER 2019-09-18 05:55 | Outpatient (RCR) | payer BC, MEDICAID ==
[~2019-09-18] VITALS: Ht 170 cm; Wt 104.0 kg
[~2019-09-18 05:55] MED LIST changes: +METF-397 PO; +OMEP10CA5 PO
== END 2019-09-18 15:11 | disposition home or self-care (01) ==
LOC: PREOP 05:55
PROVIDERS: ATTEND Obstetrics & Gynecology
DX: Z01.818 Encounter for other preprocedural examination (principal); Z20.828 Contact with and (suspected) exposure to other viral communicable diseases
CPT/HCPCS: 87635

== ENCOUNTER 2019-09-23 03:45 | Inpatient (IN) | payer MEDICAID ==
[~2019-09-23] VITALS: Ht 167.7 cm; Wt 104.5 kg
[~2019-09-23 03:45] MED LIST changes: -ACET-93 PO; -FERR-84 PO; -IBUP-844 PO; -OXYC5TAB96 PO
[2019-09-24] VITALS (7 sets, daily range): BP systolic 102–140; BP diastolic 64–99
[2019-09-24] MEDS ORDERED: LACTATED RINGERS 1,000 ML IV ONE (05:42)
[2019-09-24] MEDS ORDERED: METOCLOPRAMIDE INJ 10 MG/2 ML (REGLAN) ONE (05:42)
[2019-09-24] MEDS ORDERED: FAMOTIDINE 20MG/2ML IV (PEPCID) ONE (05:42)
[2019-09-24] MEDS ORDERED: CITRIC ACID/SOB CIT (BICITRA) 30 ML UDC ONE (05:42)
[2019-09-24] MEDS ORDERED: WATER (STERILE) FOR INJECTION 10 ML ONE (05:43)
[2019-09-24] MEDS ORDERED: ceFAZolin INJECTION 1,000 MG ONE (05:43)
--- OUTSIDE RECORDS SUMMARY | 2019-09-24 06:04 | XMS REPORT ---
Author Author Areli GIBBS [facility] Address [address] [place] [address] Care Team Providers Care Lean Facilitator Name Role Phone DIONICIO GIBBS Unavailable PROBLEMS Type Condition ICD9-CM Code [id number] Code Onset Dates Condition S tatus SNOMED Code Problem Allergic rhinitis, cause unspecified 477.9 Active 14385138 Problem Physical exam Z00.00 Active 700165 008 Problem Undiagnosed cardiac murmurs 785.2 Ac tive 681850704 Problem Acute sinusitis, unspecified 461.9 A ctive [id number] ALLERGIES No Information ENCOUNTERS Encounter Location Date Diagnosis [facility] [id number] [place] [id number] Apr, Sore throat and laryngitis J06.0 [facility] [id number] [place] [id number] Jan, Encounter for PPD test Z11.1 [facility] [id number] [place] [address] Jan, Physical exam Z00.00 [facility] [id number] [place] [id number] Nov, [facility] [id number] [place] [address] Jun, [facility] [address] [facility] [id number] [address] [place] [address] Jun, [facility] [id number] [place] [id number] May, [facility] [id number] [place] [phone] May, [facility] [address] [id number] [place] [id number] May, [facility] [address] [facility] [id number] [place] [address] May, [facility] [address] [id number] [facility] [id number] July, [facility] [address] [facility] [id number] [place] [address] July, IMMUNIZATIONS No Known Immunizations SOCIAL HISTORY Never Assessed REASON FOR VISIT PLAN OF CARE VITAL SIGNS Height 66 in 2014-06-05 Weight 219.4 lbs 2014-06-05 Temperature 99 degrees Fahrenheit 2014-06-05 Heart Rate 84 bpm 2014-06-05 Respiratory Rate 20 2014-06-05 Blood pressure systolic 128 mmHg 2014-06-05 Blood pressure diastolic 82 mmHg 2014-06-05 MEDICATIONS No Known Medications RESULTS No Results PROCEDURES No Known procedures INSTRUCTIONS MEDICATIONS ADMINISTERED No Known Medications MEDICAL (GENERAL) HISTORY Type Description Date Surgical History section x2 Hospitalization History childbirth
--- OUTSIDE RECORDS SUMMARY | 2019-09-24 06:04 | XMS REPORT ---
Author Author Areli Kelly [facility] Address [address] [place] [address] Care Team Providers Care Line Maintainer Section Name Role Phone OPAL Kelly Unavailable PROBLEMS Type Condition ICD9-CM Code GLA19-UH Code Onset Dates Condition S tatus SNOMED Code Problem Allergic rhinitis, cause unspecified 477.9 Active 24163311 Problem Physical exam Z00.00 Active 131520 008 Problem Undiagnosed cardiac murmurs 785.2 Ac tive 075442320 Problem Acute sinusitis, unspecified 461.9 A ctive [id number] ALLERGIES No Information ENCOUNTERS Encounter Location Date Diagnosis [facility] [id number] [place] [id number] Apr, Sore throat and laryngitis J06.0 [facility] [id number] [place] [address], [place] [id number] Jan, Encounter for PPD test Z11.1 [facility] [id number] [place] [address] Jan, Physical exam Z00.00 [facility] [id number] [place] [id number] Nov, [facility] [id number] [place] [phone] Jun, [facility] [id number] [place] [phone] Jun, [facility] [id number] [place] [address], [place] [id number] May, [facility] [id number] [place] [phone] May, [facility] [id number] [place] [address], [facility] [id number] May, [facility] [address] [facility] [id number] [place] [address] May, [facility] [address] [id number] [place] [facility] [id number] July, [facility] [address] [facility] [id number] [place] [address] July, IMMUNIZATIONS No Known Immunizations SOCIAL HISTORY Never Assessed REASON FOR VISIT PLAN OF CARE VITAL SIGNS Height 66 in 2014-06-11 Weight 215 lbs 2014-06-11 Temperature 98.6 degrees Fahrenheit 2014-06-11 Heart Rate 72 bpm 2014-06-11 Respiratory Rate 16 2014-06-11 Blood pressure systolic 118 mmHg 2014-06-11 Blood pressure diastolic 68 mmHg 2014-06-11 MEDICATIONS No Known Medications RESULTS No Results PROCEDURES Procedure Date Ordered Result Body Site THER/PROPH/DIAG INJ, SC/IM June 11, 2014 INJ METHYLPRDNISLN SODIM TO 125 MG June 11, 2014 INSTRUCTIONS MEDICATIONS ADMINISTERED No Known Medications MEDICAL (GENERAL) HISTORY Type Description Date Surgical History section x2 Hospitalization History childbirth
--- NOTE | 2019-09-24 06:05 | NUR ---
EMERSON SIBLEY presented to unit via ambulation from home/ED, accompanied by SO, for repeat csection. EMERSON SIBLEY weighed, gowned, voided, and to bed. EFHM and TOCO applied, VS taken. EMERSON SIBLEY oriented to bed controls, call light, TV, heat, and A/C controls.
--- OUTSIDE RECORDS SUMMARY | 2019-09-24 06:05 | XMS REPORT | Continuity of Care Document ---
Author Organization Unknown Address Unknown Phone Unavailable Allergies Active Description Code Type Severity Reaction Onset Reported/Identified Relationship to Patient Clinical Status Yes No Known Drug Allergies [id number] Drug Allergy Unknown N/A 09/16/2019 Medications There is no data. Problems Date Dx Coded Attending Type Code Diagnosis Diagnosed By 02/15/1510 BENITA HALL DO Ot Z01.8 18 ENCOUNTER FOR OTHER PREPROCEDURAL EXAMIN 02/15/1510 BENITA HALL DO Ot Z20.8 28 CONTACT W AND EXPOSURE TO OTH VIRAL COMM 03/22/2007 Ot 530.81 03/22/2007 Ot 553.3 05/06/2010 Ot 645.11 POS T TERM PREG, DELIV W/WO MENTION OF AN 05/06/2010 Ot 661.21 RADHA RINE INERT NEC-DELIV 05/06/2010 Ot 663.31 COR D ENTANGLE NEC-DELIV 05/06/2010 Ot V06.1 [id number], COMBINED [ 05/06/2010 Ot V27.0 DELI JERARDO-SINGLE LIVEBORN 07/30/2013 JAIRO WELLS APRN 477.9 RHINITIS 07/30/2013 ELLIOT SANTOS DO 477.9 RHINITIS 07/30/2013 ELLIOT SANTOS DO 477.9 RHINITIS 03/09/2014 Ot 789.00 03/09/2014 Ot 789.00 03/26/2014 BENITA HALL DO Ot 285.1 AC POSTHEMORRHAG ANEMIA 03/26/2014 BENITA HALL DO Ot 287.5 THROMBOCYTOPENIA NOS 03/26/2014 BENITA HALL DO Ot 478.1 9 OTHER DISEASE OF NASAL CAVITY AND SINUSE 03/26/2014 BENITA HALL DO Ot 648.2 2 ANEMIA-DELIVERED W P/P 03/26/2014 BENITA HALL DO Ot 648.9 2 OTH CURR COND-DEL W P/P 03/26/2014 BENITA HALL DO Ot 649.3 1 COAGULATION DEFECTS COMP PREG/CHILDBIRTH 03/26/2014 RAFAEL RICKS BENITA C Ot 654.2 1 PREV DELIVRY W/ OR W/O MENT ANT 03/26/2014 HALLMayur RICKS BENITA Petra Ot 656.6 1 EXCESS GRTH-DELIV 03/26/2014 RAFAEL RICKS BENITA Petra Ot V03.8 2 PROPHYLACTIC VACC AGAINST STREPTOCOCCUS 03/26/2014 HALLMayur RICKS BENITA Petra Ot V06.1 [id number], COMBINED [ 03/26/2014 RAFAEL RICKS BENITA Petra Ot V27.0 DELIVER-SINGLE LIVEBORN 03/27/2014 HALLMayur RICKS BENITA C Ot 654.2 3 03/27/2014 HALL EBNITA C Ot V72.8 4 06/05/2014 ELLIOT SANTOS DO K 461.9 ACUTE SINUSITIS UNSPECIFIED 06/05/2014 MARY SANTOS DOA K 785.2 UNDIAGNOSED CARDIAC MURMURS 06/05/2014 ELLIOT SANTOS DO K 461.9 ACUTE SINUSITIS UNSPECIFIED 06/05/2014 MARY SANTOS DOA K 785.2 UNDIAGNOSED CARDIAC MURMURS 03/30/2015 HALL BENITA C Ot 654.2 3 03/30/2015 HALL BENITA C Ot V72.8 4 12/27/2015 RAFAEL RICKS BENITA C Ot 654.2 3 PREV DELIVERY, ANTEPARTUM COND 12/27/2015 HALLMayur RICKS BENITA C Ot V72.8 4 EXAM PRE-OPERATIVE NOS 02/16/2017 RAMU ARRIAZA APRN Ot H57 .8 OTHER SPECIFIED DISORDERS OF EYE AND ADN 02/16/2017 RAMU ARRIAZA DATA ANALYST REPORT WRITER Ot L03.213 PERIORBITAL CELLULITIS 02/16/2017 HALL BENITA C Ot 654.2 3 PREV DELIVERY, ANTEPARTUM COND 02/16/2017 HALLMayur RICKS BENITA C Ot V72.8 4 EXAM PRE-OPERATIVE NOS 02/17/2017 RAMU ARRIAZA APRN Ot H05.011 CELLULITIS OF RIGHT ORBIT 02/20/2017 RAMU ARRIAZA APRN Ot H05.011 CELLULITIS OF RIGHT ORBIT 03/21/2017 RAMU ARRIAZA APRN Ot H05.011 CELLULITIS OF RIGHT ORBIT 03/25/2017 RAMU ARRIAZA DATA ANALYST REPORT WRITER Ot H05.011 CELLULITIS OF RIGHT ORBIT 09/17/2018 BENITA HALL DO Ot E66.9 OBESITY, UNSPECIFIED 09/17/2018 BENITA HALL DO Ot I34.0 NONRHEUMATIC MITRAL (VALVE) INSUFFICIENC 09/17/2018 BENITA HALL DO Ot O02.1 MISSED 09/17/2018 BENITA HALL DO Ot Z68.3 4 BODY MASS INDEX (BMI) 34.0-34.9, ADULT 09/30/2018 BENITA HALL DO Ot E66.9 OBESITY, UNSPECIFIED 09/30/2018 BENITA HALL DO Ot I34.0 NONRHEUMATIC MITRAL (VALVE) INSUFFICIENC 09/30/2018 BENITA HALL DO Ot O02.1 MISSED 09/30/2018 BENITA HALL DO Ot Z68.3 4 BODY MASS INDEX (BMI) 34.0-34.9, ADULT 01/30/2019 Ot 424.0 01/30/2019 Ot 756.9 01/30/2019 Ot V72.81 01/30/2019 Ot V72.83 01/30/2019 Ot 789.00 ABD OMINAL PAIN, UNSPECIFIED SITE 01/30/2019 Ot 789.00 ABD OMINAL PAIN, UNSPECIFIED SITE 01/30/2019 BENITA HALL DO Ot 654.2 3 PREV DELIVERY, ANTEPARTUM COND 01/30/2019 BENITA HALL DO Ot V72.8 4 EXAM PRE-OPERATIVE NOS 03/05/2019 [place] JIMÉNEZ DATA ANALYST REPORT WRITER Ot F43.20 ADJUSTMENT DISORDER, UNSPECIFIED 03/05/2019 JESSY, [place] L DATA ANALYST REPORT WRITER Ot J16 .8 PNEUMONIA DUE TO OTHER SPECIFIED INFECTI 03/05/2019 [place] JIMÉNEZ L DATA ANALYST REPORT WRITER Ot O99.511 DISEASES OF THE RESP SYS COMP , 03/05/2019 JESSYORLANDO ELLISON L DATA ANALYST REPORT WRITER Ot O99.89 OTH DISEASES AND CONDITIONS COMPL PREG/C 03/05/2019 JESSYORLANDO ELLISON L DATA ANALYST REPORT WRITER Ot Z3A.11 11 WEEKS GESTATION OF 03/09/2019 [place] JIMÉNEZ L DATA ANALYST REPORT WRITER Ot F43.20 ADJUSTMENT DISORDER, UNSPECIFIED 03/09/2019 JESSYDORIS ELLISONN L DATA ANALYST REPORT WRITER Ot J16 .8 PNEUMONIA DUE TO OTHER SPECIFIED INFECTI 03/09/2019 JESSY, [place] Terrazas DATA ANALYST REPORT WRITER Ot O99.511 DISEASES OF THE RESP SYS COMP , 03/09/2019 JESSY, [place] Terrazas DATA ANALYST REPORT WRITER Ot O99.89 OTH DISEASES AND CONDITIONS COMPL PREG/C 03/09/2019 JESSY, [place] Terrazas DATA ANALYST REPORT WRITER Ot Z3A.11 11 WEEKS GESTATION OF 04/17/2019 JESSY, [place] Terrazas DATA ANALYST REPORT WRITER Ot F43.20 ADJUSTMENT DISORDER, UNSPECIFIED 04/17/2019 JESSY, [place] Terrazas DATA ANALYST REPORT WRITER Ot J16 .8 PNEUMONIA DUE TO OTHER SPECIFIED INFECTI 04/17/2019 JESSY, [place] Terrazas DATA ANALYST REPORT WRITER Ot O99.511 DISEASES OF THE RESP SYS COMP , 04/17/2019 JESSY, [place] Terrazas DATA ANALYST REPORT WRITER Ot O99.89 OTH DISEASES AND CONDITIONS COMPL PREG/C 04/17/2019 JESSY, [place] Terrazas DATA ANALYST REPORT WRITER Ot Z3A.11 11 WEEKS GESTATION OF 05/13/2019 HALL DO, BENITA C Ot 654.2 3 PREV DELIVERY, ANTEPARTUM COND 05/13/2019 HALL DO, BENITA C Ot V72.8 4 EXAM PRE-OPERATIVE NOS 05/15/2019 HALL DO, BENITA C Ot 654.2 3 PREV DELIVERY, ANTEPARTUM COND 05/15/2019 HALL DO, BENITA C Ot V72.8 4 EXAM PRE-OPERATIVE NOS 05/21/2019 HALL DO, BENITA C Ot Z36.8 9 ENCOUNTER FOR OTHER SPECIFIED 05/21/2019 HALL DO, BENITA C Ot Z3A.2 0 20 WEEKS GESTATION OF 05/22/2019 HALL DO, BENITA C Ot Z36.8 9 ENCOUNTER FOR OTHER SPECIFIED 05/22/2019 HALL DO, BENIAT C Ot Z3A.2 0 20 WEEKS GESTATION OF 06/05/2019 HALL DO, BENITA C Ot Z36.8 9 ENCOUNTER FOR OTHER SPECIFIED 06/05/2019 HALL DO, BENITA C Ot Z3A.2 0 20 WEEKS GESTATION OF 07/16/2019 HALL DO, BENITA C Ot O24.4 10 GESTATIONAL DIABETES MELLITUS IN PREGNAN 07/16/2019 HALL DO, BENITA C Ot Z3A.2 9 29 WEEKS GESTATION OF 07/31/2019 RAFAEL RICKS BENITA C Ot O24.4 10 GESTATIONAL DIABETES MELLITUS IN PREGNAN 07/31/2019 RAFAEL RICKS BENITA Lambert Ot Z3A.2 9 29 WEEKS GESTATION OF 08/18/2019 RAFAEL RICKS BENITA Petra Ot O09.5 29 SUPERVISION OF ELDERLY MULTIGRAVIDA, UNS 08/18/2019 RAFAEL RICKS BENITA C Ot O24.4 10 GESTATIONAL DIABETES MELLITUS IN PREGNAN 08/18/2019 RAFAEL RICKS BENITA C Ot Z3A.3 2 32 WEEKS GESTATION OF 08/18/2019 RAFAEL RICKS BENITA C Ot Z98.8 91 HISTORY OF UTERINE SCAR FROM PREVIOUS [place] 08/21/2019 JESSY, [place] L DATA ANALYST REPORT WRITER Ot F43.20 ADJUSTMENT DISORDER, UNSPECIFIED 08/21/2019 JESSY, [place] L DATA ANALYST REPORT WRITER Ot J16 .8 PNEUMONIA DUE TO OTHER SPECIFIED INFECTI 08/21/2019 JESSY, [place] L DATA ANALYST REPORT WRITER Ot O99.511 DISEASES OF THE RESP SYS COMP , 08/21/2019 JESSY, [place] L DATA ANALYST REPORT WRITER Ot O99.89 OTH DISEASES AND CONDITIONS COMPL PREG/C 08/21/2019 JESSY, [place] L DATA ANALYST REPORT WRITER Ot Z3A.11 11 WEEKS GESTATION OF 08/28/2019 RAFAEL RICKS BENITA Lambert Ot O24.4 10 GESTATIONAL DIABETES MELLITUS IN PREGNAN 08/28/2019 RAFAEL RICKS BENITA C Ot Z3A.2 9 29 WEEKS GESTATION OF Procedures Code Description Performed By Per formed On 73.4 MEDIC AL INDUCTION LABOR 05/01/2010 72.79 VACU UM EXTRACT DEL NEC 05/02/2010 74.1 LOW C ERVICAL 05/02/2010 72.79 VACU UM EXTRACT DEL NEC 03/24/2014 74.1 LOW C ERVICAL 03/24/2014 03783 THER APUTIC INJ SQ/IM 06/11/2014 J2930 SOLU MEDROL INJ 06/11/2014 Results Test Result Range Complete blood count (CBC) with automate d white blood cell (WBC) differential - 02/16/17 20:40 Blood leukocytes automated count (number/volume) 13.4 10*3/uL 4.3-11.0 Blood erythrocytes automated count (number/volume) 4.56 10*6/uL 4.35-5.85 Venous blood hemoglobin measurement (mass/volume) 14.5 g/dL 11.5-16.0 Blood hematocrit (volume fraction) 41 % 35-52 Automated erythrocyte mean corpuscular volume 90 [ foz_us] 80-99 Automated erythrocyte mean corpuscular h emoglobin (mass per erythrocyte) 32 pg 25-34 Automated erythrocyte mean corpuscular h emoglobin concentration measurement (mass/volume) 36 g/dL 32-36 Automated erythrocyte distribution width ratio 12. 9 % 10.0- 14.5 Automated blood platelet count [...] 10*3 1.0-4.0 Blood monocytes automated count (number/volume) 0. 5 10*3 0.0-1.0 Automated eosinophil count 0.2 10*3/uL 0 .0-0.3 Automated blood basophil count (count/volume) 0.0 10*3/uL 0.0-0.1 Whole blood basic metabolic panel - 12/0 04/04 20:40 Serum or plasma sodium measurement (moles/volume) 138 mmol/L 135-145 Serum or plasma potassium measurement (moles/volume) 3.6 mmol/L 3.6-5.0 Serum or plasma chloride measurement (moles/volume) 104 mmol/L 98-107 Carbon dioxide 21 mmol/L 21-32 Serum or plasma anion gap determination (moles/volume) 13 mmol/L 5-14 Serum or plasma urea nitrogen measurement (mass/volume ) 17 mg/dL 7-18 Serum or plasma creatinine measurement (mass/volume) 0.87 mg/dL 0.60-1.30 Serum or plasma urea nitrogen/creatinine mass ratio 20 NRG Serum or plasma creatinine measurement w ith calculation of estimated glomerular filtration rate > NRG Serum or plasma glucose measurement (mass/volume) 148 mg/dL 70-105 Serum or plasma calcium measurement (mass/volume) 9.2 mg/dL 8.5-10.1 Serum or plasma C reactive protein measu rement (mass/volume) - 02/16/17 20:40 Serum or plasma C reactive protein measurement (mass/v olume) 2.97 mg/dL 0.00-0.50 Gram stain microscopy - 02/17/17 13:16 GRAM STAIN RESULT FEW GRAM POSITIVE COCCI RESEMBLI NG STAPH NRG Bacteria identification in wound by cult ure - 02/17/17 13:16 Bacteria identification in wound by culture [id number] NRG FREE TEXT EXTERNAL SENSITIVITY REPORTED AT 0826, 1 04-22-16 NRG QUANTITY OF GROWTH Moderate Growth NRG Bacterial susceptibility panel - 7 13:16 Oxacillin susceptibility test by minimum inhibitory co ncentration 0.5 NRG Gentamicin susceptibility test by minimum inhibitory c oncentration <= NRG Clindamycin susceptibility test by minimum inhibitory concentration <= NRG Erythromycin susceptibility test by minimum inhibitory concentration >= NRG Trimethoprim/sulfamethoxazole susceptibi lity test by minimum inhibitoryconcentration S NRG Vancomycin susceptibility test by minimum inhibitory c oncentration S NRG Levofloxacin susceptibility test by minimum inhibitory concentration 4 NRG Rifampin susceptibility test by minimum inhibitory con centration <= NRG Tetracycline susceptibility test by minimum inhibitory concentration <= NRG Ciprofloxacin susceptibility test by minimum inhibitor y concentration R NRG Methicillin resistant Staphylococcus aur eus (MRSA) screening culture - 09/17/18 10:20 Methicillin resistant Staphylococcus aureus (MRSA) scr eening culture NEG NRG Coronavirus SARS-CoV-2 SO 2018 0 08:08 Coronavirus Ab [Units/volume] in Serum Negative Negative Coronavirus SARS-CoV-2 SO 2018 0 08:20 Coronavirus Ab [Units/volume] in Serum Negative Negative Encounters ACCT No. Visit Date/Time Discharge Status Pt. Type Provider Facility Loc./Unit Complaint [id number] 06/11/2014 09:14:00 06/11/2014 23:59: 59 [facility] Outpatient ELLIOT SANTOS DO [id number] 06/05/2014 15:08:00 06/05/2014 23:59: 59 [facility] Outpatient ELLIOT SANTOS DO [id number] 07/30/2013 15:59:00 07/30/2013 23:59: 59 [facility] Outpatient RUSSELL DATA ANALYST REPORT WRITERJAIRO [id number] 09/18/2019 05:55:00 15:11:00 DIS Outpatient BENITA HALL DO [facility] PREOP PREVIOUS [id number] 08/15/2019 11:32:00 23:59:59 CLS Outpatient BENITA HALL DO [facility] RAD GESTATINAL DIABETES,32 WEEKS GESTATION [id number] 07/15/2019 13:11:00 23:59:59 CLS Outpatient BENITA HALL DO [facility] RAD GDM [id number] 05/19/2019 10:08:00 23:59:59 CLS Outpatient BENITA HALL DO [facility] RAD [facility] [id number] 03/03/2019 14:06:00 23:59:59 CLS Outpatient [place]LANDO JIMÉNEZ DATA ANALYST REPORT WRITER [facility] RAD PNEUMONIA [id number] 09/17/2018 10:05:00 019 14:55:00 DIS Outpatient BENITA HALL DO [facility] SDC MISSED AB [id number] 02/17/2017 13:04:00 017 13:24:00 DIS Emergency RAMU ARRIAZA DATA ANALYST REPORT WRITER [facility] ER WOUND CHECK [id number] 02/16/2017 20:22:00 017 21:46:00 DIS Emergency RAMU ARRIAZA DATA ANALYST REPORT WRITER [facility] ER R EYELID CELLULITIS [id number] 03/24/2014 07:37:00 015 14:30:00 DIS Inpatient BENITA HALL DO [facility] LDRP PREVIOUS SECTI ON [id number] 03/16/2014 08:57:00 014 23:59:59 CLS Outpatient BENITA HALL DO [facility] PREOP PREVIOUS SECTI ON [id number] 09/23/2019 22:44:00 Document Registration [id number] 09/23/2019 09:00:00 P EN Preadmit BENITA HALL DO REVIOUS [id number] 01/30/2019 08:22:00 Document Registration [id number] 03/09/2014 13:51:00 Document Registration [id number] 01/21/2011 11:14:00 Document Registration [id number] 01/20/2011 13:01:00 Document Registration [id number] 05/01/2010 19:58:00 Document Registration [id number] 03/22/2007 09:09:00 Document Registration [id number] 04/16/2006 10:45:00 Document Registration [id number] 07/10/2019 13:00:00 07/10/2019 23:59:5 9 CLS Outpatient ZITA CARRANZA [facility]
[2019-09-24] MEDS ORDERED: LACTATED RINGERS 1,000 ML IV PRN (06:08)
[2019-09-24] MEDS ORDERED: ceFAZolin INJECTION 1,000 MG in WATER (STERILE) FOR INJECTION 10 ML IV ONE (06:15)
[2019-09-24] MEDS ORDERED: CITRIC ACID/SOB CIT (BICITRA) 30 ML UDC PO ONE (06:15)
[2019-09-24] MEDS ORDERED: METOCLOPRAMIDE INJ 10 MG/2 ML (REGLAN) IV ONE (06:15)
[2019-09-24] MEDS ORDERED: FAMOTIDINE 20MG/2ML IV (PEPCID) IV ONE (06:15)
[2019-09-24] MEDS: LACTATED RINGERS 1,000 ML IV PRN ×2 (06:32→07:21)
[2019-09-24 06:48] LABS: CLARITY,URINE CLEAR; COLOR,URINE YELLOW; GLUCOSE, URINE (UA) NEGATIVE (NEGATIVE); KETONES,URINE 3+ (NEGATIVE); LEUKOCYTE ESTERASE ,URINE NEGATIVE (NEGATIVE); NITRITE,URINE NEGATIVE (NEGATIVE); PH,URINE 6.5 (5-9); PROTEIN,URINE TRACE (NEGATIVE)
[2019-09-24 06:56] LABS: BASOPHILS % (AUTO) 0 % (0-10); EOSINOPHILS # (AUTO) 0.1 10^3/uL (0.0-0.3); EOSINOPHILS % (AUTO) 1 % (0-10); HEMATOCRIT 30 % (35-52); HEMOGLOBIN 10.3 G/DL (11.5-16.0); LYMPHOCYTES % (AUTO) 11 % (12-44); MEAN CORPUSCULAR HEMOGLOBIN 32 PG (25-34); MEAN CORPUSCULAR HGB CONC 34 G/DL (32-36); MEAN CORPUSCULAR VOLUME 94 FL (80-99); MEAN PLATELET VOLUME 11.5 FL (7.4-10.4); MONOCYTES # (AUTO) 0.6 X 10^3 (0.0-1.0); MONOCYTES % (AUTO) 6 % (0-12); NEUTROPHILS # (AUTO) 7.4 X 10^3 (1.8-7.8); NEUTROPHILS % (AUTO) 82 % (42-75); PLATELET COUNT 98 10^3/uL (130-400)
[2019-09-24] MEDS ORDERED: fentaNYL INJECTION 100 MCG/2 ML AMP ONE (06:57)
[2019-09-24] MEDS ORDERED: OXYTOCIN PRE-MIX DRIP 1,000 ML IV ONE (06:57)
[2019-09-24] MEDS ORDERED: BUPIVACAINE 0.5% 30 ML (SENSORCAINE) VIAL ONE (07:19)
[2019-09-24 07:20] LABS: BACTERIA,URINE MODERATE /HPF; BILIRUBIN,URINE 1+ (NEGATIVE); RBC,URINE 0-2 /HPF
--- NOTE | 2019-09-24 07:27 | Progress Note-Pre Operative ---
Pre-Operative Progress Note H&P Reviewed The H&P was reviewed, patient examined and no changes noted. Patient had questionable ngo virus exposure and allergic symptoms so CS was postponed until the covid testing could be repeated Date Seen by Provider: Sep 24, 2019 Time Seen by Provider: 07:00 Date H&P Reviewed: Sep 22, 2019 Time H&P Reviewed: 07:15 Pre-Operative Diagnosis: Previous section BENITA HALL DO Sep 24, 2019 07:27
[2019-09-24] MEDS ORDERED: PHENYLEPHRINE 100 MCG/ML 10 ML (ANESTHESIA) SYR ONE (08:01)
[2019-09-24] MEDS ORDERED: OXYTOCIN PRE-MIX DRIP 500 ML IV SCH (08:35)
--- NOTE | 2019-09-24 08:35 | Cesarean Section Operative ---
Procedure Procedure Note Pre-operative Diagnosis: Areli soriano a (36 /Para 4 2/ ,Gestational Age 39 5/7 weeks, GDM A2, previous section, AMA Post-operative Diagnosis: same [] Procedure: [Repeat low transverse section Estimated blood loss: 500 mL Disposition: stable Findings: Viable female , Apgars 8/9, weight 9#3ounces, intact placenta, 3vc, normal appearing uterus, tubes, and ovaries. Indications:Areli soriano a 36 /Para 4 /2 ,Gestational Age 39 5/7 weeks, GDM A2, previous section, AMA, for repeat section Procedure Details: The patient was seen in pre-op and the procedure was discussed with the patient in full, including the risks, benefits, and alternatives. All questions were answered. The patient was taken to the operating room and a time out was performed, verifying patient and procedure. After spinal anesthesia was placed by our anesthesia colleagues, the patient was placed in the dorsal supine with leftward tilt for uterine displacement.~ Her abdomen was then prepped and draped in the typical sterile fashion. A Pfannenstiel skin incision was made using a scalpel and carried down through the underlying fascia. The fascia was incised in the midline and tented up using Nella clamps. On both the inferior and superior fascia side the rectus muscle was dissected off bluntly and sharply using King scissors. The peritoneum was identified and entered bluntly in the midline. This was then stretched laterally using manual strength. After entering the abdominal cavity and confirming lack of intraperitoneal adhesions, a large Wagner retractor was placed and the lower uterine segment was visualized. A bladder flap was created with the use of Metzenbaum scissors.~ A scalpel was utilized to make a low transverse uterine incision. Amniotomy was performed with an Allis clamp with return of clear fluid. The infant's head was grasped and brought to the level of the incision. Fundal pressure was applied and was delivered without difficulty. Mouth and nares were suctioned with bulb suction. After the umbilical cord was clamped and cut, the infant was handed off to the pediatric staff. A sample of cord blood was then obtained. The placenta was delivered intact via uterine massage. The uterus was exteriorized and cleared of all clots and debris. The uterine incision was closed using 0 Vicryl in a running locked fashion. A second imbricated layer was placed using 0 Vicryl in a running fashion as well. The uterus was flexed forward and the posterior rectouterine space was inspected and cleared of all clots and debris. Again the hysterotomy site was examined and hemostasis was observed. The bilateral tubes and ovaries appeared normal. The uterus was placed back into the abdominal cavity and abdominal gutters were cleared of all clots and debris. A final check of the uterine incision showed it to be hemostatic. The peritoneum was closed using 3-0 Vicryl in a running fashion. The fascia was closed with 0 Vicryl in a running fashion. The subcutaneous space was hemostatic, and irrigated. The subcutaneous space was closed with 3-0 Vicryl in several single interrupted stitches. The skin was then closed using 4-0 Monocryl in a running subcuticular fashion. The skin edges were reapproximated together and were hemostatic. A pressure dressing was applied. All sponge, lap and needle counts were correct at the end of the procedure per nursing. Vitals - Labs Vital Signs - I&O Vital Signs Date Time Temp Pulse Resp B/P (MAP) Pulse Ox O2 Delivery O2 Flow Rate FiO2 09/24/19 06:18 37.1 93 18 96 Room Air Labs Laboratory Tests 09/24/19 06:05: Urine Color YELLOW, Urine Clarity CLEAR, Urine pH 6.5, Urine Specific [place] 1.025H, Urine Protein TRACEH, Urine Glucose (UA) NEGATIVE, Urine Ketones 3+H, Urine Nitrite NEGATIVE, Urine Bilirubin 1+H, Urine Urobilinogen 1.0, Urine Leukocyte Esterase NEGATIVE, Urine RBC (Auto) NEGATIVE, Urine RBC 0-2, Urine WBC 5-10H, Urine Squamous Epithelial Cells 5-10, Urine Crystals NONE, Urine Bacteria MODERATEH, Urine Casts NONE, Urine Mucus MODERATEH, Urine Culture Indicated YES 09/24/19 06:43: White Blood Count 9.0, Red Blood Count 3.21L, Hemoglobin 10.3L, Hematocrit 30L, Mean Corpuscular Volume 94, Mean Corpuscular Hemoglobin 32, Mean Corpuscular Hemoglobin Concent 34, Red Cell Distribution Width 16.0H, Platelet Count 98L, Mean Platelet Volume 11.5H, Neutrophils (%) (Auto) 82H, Lymphocytes (%) (Auto) 11L, Monocytes (%) (Auto) 6, Eosinophils (%) (Auto) 1, Basophils (%) (Auto) 0, Neutrophils # (Auto) 7.4, Lymphocytes # (Auto) 1.0, Monocytes # (Auto) 0.6, Eosinophils # (Auto) 0.1, Basophils # (Auto) 0.0, Glucose Level 109H BENITA HALL DO Sep 24, 2019 08:35
[2019-09-24] MEDS ORDERED: KETOROLAC 30 MG/ML VIAL ONE (08:40)
[2019-09-24] MEDS ORDERED: morphine INJ 4 MG/ML 1 ML (VIAL/SYRINGE) IVP PRN (08:45)
[2019-09-24] MEDS ORDERED: TETANUS,DIPTH,PERTUSS P/F (BOOSTRIX) 0.5 ML VIAL IM SCH (08:45)
[2019-09-24] MEDS ORDERED: SALINE NASAL SPRAY (OCEAN) 45 ML BTL PRN (08:45)
[2019-09-24] MEDS ORDERED: MEASLES,MUMPS,RUBELLA 1 EA INJ SC SCH (08:45)
[2019-09-24] MEDS ORDERED: PSEUDOEPHEDRINE HCL 30 MG (SUDAFED) TAB PO PRN (08:45)
[2019-09-24] MEDS: KETOROLAC 30 MG/ML VIAL IV SCH ×2 (09:28→17:33)
--- NOTE | 2019-09-24 10:00 | NUR ---
cazares catheter dc'd in PACU. 200cc urine noted. FFu/o. lt rubra noted, no clots expressed. lyndon-care offered. v-pad and panties in place.
--- NOTE | 2019-09-24 10:05 | NUR ---
pt transferred to room 307 via bed with this RN, and @ side. familiarized with room supplies. call light within reach.
[2019-09-24] MEDS: FLUTICASONE NASAL SPRAY (FLONASE) 16 GM BTL NS SCH (11:06)
[2019-09-24] MEDS: ACETAMINOPHEN 500 MG TAB (TYLENOL) PO SCH ×2 (12:27→22:12)
[2019-09-24] MEDS: DOCUSATE SODIUM 100 MG (COLACE) CAP PO SCH (12:27)
[2019-09-24] MEDS: CATHETER FLUSH 10 ML SYR IV SCH (17:33)
--- NOTE | 2019-09-24 19:10 | NUR ---
report given to next shift.
--- NOTE | 2019-09-24 19:45 | NUR ---
POC reviewed w/pt & SO, infant in nsy, will get update on infant for pt. & SO.
--- NOTE | 2019-09-24 20:50 | NUR ---
Pt. & SO to nsy to visit , both upset, cont. to give reassurance, they will talk to Dr. Cox on the phone about POC for .
[2019-09-25] MEDS: KETOROLAC 30 MG/ML VIAL IV SCH ×2 (00:04→06:45)
[2019-09-25 00:05] VITALS: BP 124/70
[2019-09-25] MEDS: DOCUSATE SODIUM 100 MG (COLACE) CAP PO SCH ×2 (00:05→08:40)
[2019-09-25] MEDS: FLUTICASONE NASAL SPRAY (FLONASE) 16 GM BTL NS SCH ×2 (00:46→08:40)
[2019-09-25 04:00] VITALS: BP 114/68
[2019-09-25 05:13] LABS: BASOPHILS % (AUTO) 0 % (0-10); EOSINOPHILS # (AUTO) 0.1 10^3/uL (0.0-0.3); EOSINOPHILS % (AUTO) 1 % (0-10); HEMATOCRIT 31 % (35-52); HEMOGLOBIN 10.3 G/DL (11.5-16.0); LYMPHOCYTES # (AUTO) 1.5 X 10^3 (1.0-4.0); LYMPHOCYTES % (AUTO) 18 % (12-44); MEAN CORPUSCULAR HEMOGLOBIN 32 PG (25-34); MEAN CORPUSCULAR HGB CONC 34 G/DL (32-36); MEAN CORPUSCULAR VOLUME 95 FL (80-99); MEAN PLATELET VOLUME 11.7 FL (7.4-10.4); MONOCYTES # (AUTO) 0.7 X 10^3 (0.0-1.0); MONOCYTES % (AUTO) 8 % (0-12); NEUTROPHILS # (AUTO) 6.2 X 10^3 (1.8-7.8); NEUTROPHILS % (AUTO) 73 % (42-75); PLATELET COUNT 121 10^3/uL (130-400); RED CELL DISTRIBUTION WIDTH 16.2 % (10.0-14.5); WHITE BLOOD COUNT 8.4 10^3/uL (4.3-11.0)
[2019-09-25] MEDS: ACETAMINOPHEN 500 MG TAB (TYLENOL) PO SCH (06:45)
[2019-09-25] MEDS: CATHETER FLUSH 10 ML SYR IV SCH (06:45)
--- NOTE | 2019-09-25 07:25 | NUR ---
Called Dr. Varela, update given including FSBS, will recheck tomorrow am, july D/C I&O.
[2019-09-25 08:45] VITALS: BP 111/71
--- NOTE | 2019-09-25 08:48 | Postpartum Progress Note ---
Post Op Post-operative Day #1 s/p RLTCS FSBS was 137, but ate a sandwich late. She "didn't think". Will repeat fasting tomorrow. If continue to be high may continue metformin, but diabetes was gestational only. Congestion is better. Baby was tachypneic so isolated and covid testing despite 2 negative covid tests on mom. Subjective: Patient is without complaints. Ambulating, voiding after cazares removed. Tolerating a regular diet without nausea or vomiting. Normal lochia. Pain is well controlled with oral pain medications. Passing flatus. breast feeding. [] Objective: 09/24/19 09/25/19 09/25/19 20:50 00:05 04:00 Temp 36.6 36.4 36.5 Pulse 80 72 68 Resp 20 18 18 B/P (MAP) 140/78 (98) 124/70 (88) 114/68 (83) Pulse Ox 97 98 98 O2 Delivery Room Air Room Air Room Air 09/25/19 00:00 Intake Total 2300 ml Output Total 1550 ml Balance 750 ml Laboratory Tests Test 09/25/19 04:37 Range/Units White Blood Count 8.4 4.3-11.0 10^3/uL Red Blood Count 3.24 L 4.35-5.85 10^6/uL Hemoglobin 10.3 L 11.5-16.0 G/DL Hematocrit 31 L 35-52 % Mean Corpuscular Volume 95 80-99 FL Mean Corpuscular Hemoglobin 32 25-34 PG Mean Corpuscular Hemoglobin Concent 34 32-36 G/DL Red Cell Distribution Width 16.2 H 10.0-14.5 % Platelet Count 121 L 130-400 10^3/uL Mean Platelet Volume 11.7 H 7.4-10.4 FL Neutrophils (%) (Auto) 73 42-75 % Lymphocytes (%) (Auto) 18 12-44 % Monocytes (%) (Auto) 8 0-12 % Eosinophils (%) (Auto) 1 0-10 % Basophils (%) (Auto) 0 0-10 % Neutrophils # (Auto) 6.2 1.8-7.8 X 10^3 Lymphocytes # (Auto) 1.5 1.0-4.0 X 10^3 Monocytes # (Auto) 0.7 0.0-1.0 X 10^3 Eosinophils # (Auto) 0.1 0.0-0.3 10^3/uL Basophils # (Auto) 0.0 0.0-0.1 10^3/uL Physical Exam: General - Alert and oriented, no apparent distress Abdomen - Soft, appropriately tender to palpation, non-distended, fundus firm at umbilicus Incision - clean, dry and intact; no erythema or induration, no drainage Extremities - no edema, negative Jerardo's bilaterally [] Assessment: [] post-operative day # [], status post []. Recovering well, hemodynamically stable Acute blood loss anemia [] Plan: Routine post-operative care. Encourage breast feeding. Encourage ambulation. VTE prophylaxis: SCDs. Ferrous sulfate supplementation. Plan for discharge [] Vitals - Labs Vital Signs - I&O Vital Signs Date Time Temp Pulse Resp B/P (MAP) Pulse Ox O2 Delivery O2 Flow Rate FiO2 09/25/19 04:00 36.5 68 18 114/68 (83) 98 Room Air 09/25/19 00:05 36.4 72 18 124/70 (88) 98 Room Air 09/24/19 20:50 36.6 80 20 140/78 (98) 97 Room Air 09/24/19 17:30 35.3 66 18 129/96 (107) 97 Room Air 09/24/19 11:16 95 Room Air 09/24/19 11:16 Room Air 09/24/19 09:30 Room Air 09/24/19 09:30 36.9 18 109/64 (79) 95 Room Air 09/24/19 09:30 36.9 85 18 109/64 (79) 95 Room Air 09/24/19 09:15 Room Air 09/24/19 09:15 37.4 18 102/78 (86) 100 Room Air 09/24/19 08:55 36.5 16 116/99 (105) 98 Room Air 09/24/19 08:55 Room Air I & O 09/25/19 07:00 Intake Total 5110 ml Output Total 4400 ml Balance 710 ml Labs Laboratory Tests 09/25/19 04:37: White Blood Count 8.4, Red Blood Count 3.24L, Hemoglobin 10.3L, Hematocrit 31L, Mean Corpuscular Volume 95, Mean Corpuscular Hemoglobin 32, Mean Corpuscular Hemoglobin Concent 34, Red Cell Distribution Width 16.2H, Platelet Count 121L, Mean Platelet Volume 11.7H, Neutrophils (%) (Auto) 73, Lymphocytes (%) (Auto) 18, Monocytes (%) (Auto) 8, Eosinophils (%) (Auto) 1, Basophils (%) (Auto) 0, Neutrophils # (Auto) 6.2, Lymphocytes # (Auto) 1.5, Monocytes # (Auto) 0.7, Eosinophils # (Auto) 0.1, Basophils # (Auto) 0.0 BENITA HALL DO Sep 25, 2019 08:48
[2019-09-25] MEDS ORDERED: OXYC5TAB96 PO (09:22)
[2019-09-25] MEDS ORDERED: FERR-84 PO (09:22)
[2019-09-25] MEDS ORDERED: ACET-93 PO (09:22)
[2019-09-25] MEDS ORDERED: IBUP-844 PO (09:22)
--- NOTE | 2019-09-25 09:24 | Discharge Inst-Women's Service ---
Discharge Inst-Women's Serv Depart Medication/Instructions New, Converted or Re-Newed RX: Other (transmitted and printed) Instructions no lifting over 25 lbs, nothing in the vagina for 6 weeks, no driving for 1 week Final Diagnosis previous section gestational diabetes, A2 allergic rhinitis Problems Reviewed?: Yes Consults/Follow Up Additional Follow Up: Yes (1 week with Lawanda and 6 week pp exam) Activity Activity: Activity as Tolerated Driving Instructions: No Driving for 1 Week NO SMOKING: NO SMOKING Nothing Inside Vagina: No Douching, No [place], No Tampons Diet Discharge Diet: No Restrictions Symptoms to Report to : Swelling Increased, Bleeding Excessive, Pain Increased, Fever Over 101 Degrees F, Vaginal Bleeding Increase, Cramps in Feet or Legs, Vaginal Discharge Foul For Any Problems or Questions: Contact Your Physician Skin/Wound Care Infection Signs and Symptoms: Increased Redness, Foul Odor of Wound, Increased Drainage, Skin Itchy or Has a Rash, Increased Swelling, Temperature Above 101 F Operative Area Clean and Dry: Keep Incision Clean/Dry Stitches/Kirill/Dermabond: Dermabond Bathing Instructions: BENITA Mccarty DO Sep 25, 2019 09:23
[2019-09-25 11:50] VITALS: BP 111/74
[2019-09-25] MEDS ORDERED: IBUPROFEN 600 MG (MOTRIN) TAB PO SCH (12:00)
--- NOTE | 2019-09-25 14:26 | Anesthesia-Regional Post-Op ---
Regional Patient Condition Mental Status: Alert, Oriented x3 Circulation: Same as Pre-Op Headache: Absent Sensation: Full Recovery Motor Block: Absent Post Op Complications Complications None Follow Up Care/Instructions Patient Instructions None needed. Anesthesia/Patient Condition Patient was seen earlier today about noon and she was doing well, no complaints, stable vital signs, no apparent adverse anesthesia problems. Planning for a discharge to home today. GUMARO KOCH DO Sep 25, 2019 14:26
== END 2019-09-25 11:50 | disposition home or self-care (01) | DRG 787 ==
LOC: LDRP 09-24 05:56
PROVIDERS: ADMIT Obstetrics & Gynecology; ATTEND Obstetrics & Gynecology
PROC: 10D00Z1 Extraction of Products of Conception, Low, Open Approach (ICD-10-PCS; principal; 2019-09-24 07:21)
DX: O34.211 Maternal care for low transverse scar from previous cesarean delivery (principal); D62 Acute posthemorrhagic anemia; Z37.0 Single live birth; Z3A.39 39 weeks gestation of pregnancy; O99.03 Anemia complicating the puerperium
CPT/HCPCS: 36415; 81000; 82947; 82962; 85025; 86850; 86900; 86901; 87088; 94664

== ENCOUNTER → 2019-09-23 | Outpatient (CLI) | payer MEDICAID ==
[~2019-09-23] MED LIST changes: +ACET-93 PO; +FERR-84 PO; +IBUP-844 PO; +OXYC5TAB96 PO
== END ==
LOC: LABNPT 08:59
PROVIDERS: ATTEND Obstetrics & Gynecology
DX: Z20.828 Contact with and (suspected) exposure to other viral communicable diseases (principal)
CPT/HCPCS: 87635